=== PATIENT | female | born 1945 | race Caucasian/White ===

== ENCOUNTER 2020-05-23 02:01 | Emergency (ER) | payer SELFPAY ==
[~2020-05-23] VITALS: Ht 154.9 cm; Wt 78.0 kg
--- NOTE | 2020-05-23 02:13 | NUR ---
pt meño kemp from [facility]. Pt was resting on couch then rolled off apparently. No LOC, pt is ANOx2-3, denies head trauma, no obvious deformities, c/o pain in left shoulder. CMS intact. placed on spo2/bp monitoring. vss. given warm blanket for comfort.
--- NOTE | 2020-05-23 03:00 | NUR ---
late entry d/t pt care: this rn spoke to daughter who has power of state attorney, daughter plans to come to [place] to see mother. pt nad, resting on guy childress, no change in condition. wctm.
--- NOTE | 2020-05-23 04:10 | NUR ---
Rn called and spoke to Katherine at [facility], she states pt is able to go back to facility. Rn consulted power of assistant prosecuting attorney, daughter, who decided to have [facility] transport pt back to facility. p 3 armament/ordnance ima technician arranging pt ride. WCTM. NAD. appears comfortable resting on gurney, eyes closed, even and unlabored respirations.
--- NOTE | 2020-05-23 05:04 | NUR ---
PT RESTING ON GURNEY, NAD, SKIN COLOR WNL, WARM AND DRY. VSS. WCTM. WAITING FOR [facility] RIDE BACK TO [facility].
[2020-05-23 06:05] VITALS: BP 94/52
--- NOTE | 2020-05-23 06:06 | NUR ---
Patient DC INSTRUCTIONS GIVEN TO STACI. PT TO BE TRANSFERRED BACK TO [facility]. PT NAD, VSS. NO CHANGE IN CONDITION . NO PT BELONGINGS LEFT IN ROOM AFTER DC.
== END 2020-05-23 06:07 | disposition home or self-care (01) ==
LOC: ED 04:39
DX: G89.11 Acute pain due to trauma (principal); M25.512 Pain in left shoulder; M54.6 Pain in thoracic spine; I10 Essential (primary) hypertension; Z87.891 Personal history of nicotine dependence; W19.XXXA Unspecified fall, initial encounter; Y93.89 Activity, other specified; Y92.098 Other place in other non-institutional residence as the place of occurrence of the external cause; Y99.8 Other external cause status
CPT/HCPCS: 72072; 99285